=== PATIENT | female | born 1970 | race Hispanic/Latino ===

== ENCOUNTER 2019-03-20 06:44 | Observation (INO) | payer OTHER, MEDICARE ==
[2019-03-19 14:29] LABS: BASOPHILS % (AUTO) 0.5 % (0.0-5.0); EOSINOPHILS % (AUTO) 4.2 % (0.0-8.0); HEMATOCRIT 40.5 % (36-48); LYMPHOCYTES % (AUTO) 43.6 % (21.0-51.0); MEAN CORPUSCULAR HEMOGLOBIN 30.4 pg (27.0-33.0); MEAN CORPUSCULAR HGB CONC 32.1 g/dL (32.0-36.0); MEAN CORPUSCULAR VOLUME 94.6 fL (79-99); MONOCYTES % (AUTO) 7.5 % (3.0-13.0); NEUTROPHILS % (AUTO) 43.9 % (40.0-77.0); PLATELET COUNT (AUTO) 193 K/uL (130-400); RED BLOOD CELL COUNT(AUTO) 4.28 MIL/uL (4.00-5.50); RED CELL DISTRIBUTION WIDTH 12.9 % (11.0-15.5); WHITE BLOOD COUNT (AUTO) 7.6 K/uL (4.8-10.8)
[2019-03-19 14:39] VITALS: BP 135/68
[2019-03-20] VITALS (24 sets, daily range): BP systolic 107–135; BP diastolic 51–93
[~2019-03-20] VITALS: Ht 166.4 cm; Wt 80.6 kg
[~2019-03-20 06:44] MED LIST: BIOT1TAB16 PO; CALCIUM + VIT D3 PO; CHOL500051 PO; FOLIC ACID PO; HYDR200T82 PO; METH2.5T6 PO; MULT1TAB62 PO; NAPR-1023 PO; VITAMIN B12 PO; [UNRECOGNIZED DRUG - OTHER] PO
[2019-03-20] MEDS ORDERED: LACTATED RINGERS 1000ML 1,000 ML IV ONE (06:59)
[2019-03-20] MEDS ORDERED: CEFAZOLIN SODIUM 1 GM VIAL ONE (06:59)
[2019-03-20] MEDS ORDERED: CALDOLOR 800MG+NS 250ML 250 ML IV ONE (07:05)
[2019-03-20] MEDS ORDERED: LIDOCAINE PF 2% 5ML ABBOJECT ONE ×2 (07:23→09:19)
[2019-03-20] MEDS ORDERED: MIDAZOLAM HCL 1 MG/ML 2ML VIAL ONE ×2 (07:23→09:16)
[2019-03-20] MEDS ORDERED: PROPOFOL 10 MG/ML 20ML VIAL IV ONE ×2 (07:24→09:19)
[2019-03-20] MEDS ORDERED: FENTANYL CITRATE PF 50 MCG/1 ML 2ML VIAL ONE ×3 (07:24→10:17)
[2019-03-20] MEDS ORDERED: ROCURONIUM 10MG/1ML SYR 10 MG/ML ML ONE (09:19)
[2019-03-20] MEDS ORDERED: MEPERIDINE-PF 25 MG/ML SYG ONE ×2 (10:17→10:18)
[2019-03-20] MEDS ORDERED: ESTROGENS,CONJUGATED 0.625 MG/GM 42.5 GM VAG CRM VG ONE (10:17)
[2019-03-20] MEDS ORDERED: GLYCOPYRROLATE 1 MG/5 ML SYRINGE ONE (10:27)
[2019-03-20] MEDS ORDERED: NEOSTIGMINE 5MG/5ML SYR IV ONE (10:27)
[2019-03-20] MEDS ORDERED: BISACODYL 10 MG SUPP.RECT RC PRN (13:00)
[2019-03-20] MEDS ORDERED: ACETAMINOPHEN-CODEINE 300/30MG TAB PO PRN (13:00)
[2019-03-20] MEDS ORDERED: ONDANSETRON HCL 4 MG/2 ML VIAL IVP PRN (13:00)
[2019-03-20] MEDS ORDERED: PROMETHAZINE HCL 25 MG/ML 1ML AMPULE IM PRN ×2 (13:00)
[2019-03-20] MEDS ORDERED: MEPERIDINE-PF 50 MG/ML SYG IM PRN (13:00)
[2019-03-20] MEDS ORDERED: SIMETHICONE 80 MG TAB.CHEW PO PRN (13:00)
[2019-03-20] MEDS ORDERED: MEPERIDINE-PF 25 MG/ML SYG IM PRN (13:00)
[2019-03-20] MEDS ORDERED: DOCUSATE SODIUM 100 MG CAP PO PRN (13:00)
[2019-03-20] MEDS ORDERED: ACETAMINOPHEN-CODEINE 300/30MG TAB ONE (13:13)
[2019-03-20] MEDS: DEXTROSE 5 %-0.45 % NACL 1,000 ML IV PRN (20:42)
[2019-03-20] MEDS: CALDOLOR 800MG+NS 250ML 250 ML IV SCH (20:42)
[2019-03-20] MEDS: HYDROXYCHLOROQUINE SULFATE 200 MG TAB PO SCH (22:55)
[2019-03-20] MEDS: CALCIUM 600 + VITAMIN D 400 TABLET PO SCH (22:55)
[2019-03-21 03:30] VITALS: BP 117/64
[2019-03-21] MEDS: DEXTROSE 5 %-0.45 % NACL 1,000 ML IV PRN (03:56)
[2019-03-21] MEDS: CALDOLOR 800MG+NS 250ML 250 ML IV SCH (05:01)
--- NOTE | 2019-03-21 06:48 | NUR ---
LUKE CATHETER F/C REMOVED, CATHETER INTACT, TOLERATED WELL, INSTRUCTED TO CALL NURSE WHEN SHE HAS URGE TO VOID, ACKNOWLEDGES UNDERSTANDING Addendum: 03/21/19 at 0650 by SHERRY LANDAVERDE LVN Amended: Links added.
[2019-03-21 06:55] LABS: HEMATOCRIT 35.2 % (36-48); MEAN CORPUSCULAR HEMOGLOBIN 30.7 pg (27.0-33.0); MEAN CORPUSCULAR HGB CONC 32.7 g/dL (32.0-36.0); MEAN CORPUSCULAR VOLUME 93.9 fL (79-99); PLATELET COUNT (AUTO) 170 K/uL (130-400); RED BLOOD CELL COUNT(AUTO) 3.75 MIL/uL (4.00-5.50); RED CELL DISTRIBUTION WIDTH 12.9 % (11.0-15.5); WHITE BLOOD COUNT (AUTO) 9.1 K/uL (4.8-10.8)
[2019-03-21 08:05] VITALS: BP 100/64
[2019-03-21] MEDS ORDERED: MULTIVITAMIN PO SCH (09:00)
[2019-03-21] MEDS: HYDROXYCHLOROQUINE SULFATE 200 MG TAB PO SCH (09:00)
[2019-03-21] MEDS ORDERED: CYANOCOBALAMIN (VITAMIN B-12) 1,000 MCG TABLET PO SCH (09:00)
[2019-03-21] MEDS ORDERED: KERATIN PO SCH (09:00)
[2019-03-21] MEDS ORDERED: ACID PO SCH (09:00)
[2019-03-21] MEDS ORDERED: BIOTIN PO SCH (09:00)
[2019-03-21] MEDS ORDERED: FOLIC ACID 1 MG TABLET PO SCH (09:00)
[2019-03-21] MEDS ORDERED: B LON PO SCH (09:00)
[2019-03-21] MEDS: CALCIUM 600 + VITAMIN D 400 TABLET PO SCH (09:00)
[2019-03-21] MEDS ORDERED: FOS PO SCH (09:00)
[2019-03-21] MEDS ORDERED: **HM**Cholecalciferol (Vitamin D3) (Vitamin D3) 125 MCG PO SCH (09:00)
[2019-03-21] MEDS ORDERED: CASEI PO SCH (09:00)
[2019-03-21] MEDS ORDERED: B BIF PO SCH (09:00)
--- NOTE | 2019-03-21 10:00 | NUR ---
DR. FABIOLA VAUGHN AT BEDSIDE TO ASSESS AND TALK TO TO PT
[2019-03-21 11:36] VITALS: BP 80/45
[2019-03-21] MEDS ORDERED: IBUPROFEN 800 MG TAB PO SCH (13:00)
[2019-03-21 15:15] VITALS: BP 108/41
--- NOTE | 2019-03-21 17:50 | NUR ---
DISCHARGE PT LEFT UNIT VIA WHEELCHAIR, ACCOMPANIED BY SPOUSE. DENIED PAIN AND HAD NO COMPLAINTS. TRANSPORTED BY PERSONAL VEHICLE.
== END 2019-03-21 17:50 | disposition home or self-care (01) ==
LOC: DAH 06:44 → WSH 06:45
PROVIDERS: ADMIT Obstetrics & Gynecology; ATTEND Obstetrics & Gynecology
PROC: 0US Female Reproductive System, Reposition (ICD-10-PCS; principal; 2019-03-20 09:16)
PROC: 0JQC0ZZ Repair Pelvic Region Subcutaneous Tissue and Fascia, Open Approach (ICD-10-PCS; 2019-03-20 09:16)
DX: N81.10 Cystocele, unspecified (principal); N81.5 Vaginal enterocele
CPT/HCPCS: 36415 ×2; 57240; 57268; 85025; 85027; 86850; 86900; 86901; 96365; 96366; 96372; A4215; A4221; A4222; A4223; A4351; A4510; A4600; A6260; G0378 ×30; J0690; J1741 ×3; J2001; J2175 ×4; J2250; J2550; J2704; J2710; J3010 ×2; J3490; J7120; 96361